=== PATIENT | female | born 1980 | race Caucasian/White ===

== ENCOUNTER 2018-05-24 12:56 | Emergency (ER) | payer BC ==
[~2018-05-24] VITALS: Ht 162.6 cm; Wt 114.8 kg
[~2018-05-24 12:56] MED LIST: LEVOTHYROXINE0.1 M2 PO
[2018-05-24 13:02] VITALS: Ht 162.6 cm; Wt 114.8 kg
[2018-05-24 15:04] LABS: BASOPHIL % 0.7 % (0-2); PLATELET COUNT 252 x10^3mcL (130-400)
[2018-05-24 15:05] LABS: RED CELL DISTRIBUTION WIDTH 14.8 % (11.5-14.5)
[2018-05-24 15:18] LABS: CALCIUM 8.8 mg/dL (8.5-10.1); CARBON DIOXIDE 26.5 mmol/L (21-32); CHLORIDE SERUM 104 mmol/L (98-107); CREATININE SERUM 0.6 mg/dL (0.6-1.0); GFR1 > 60 mL/min; GLUCOSE SERUM 88 mg/dL (74-106); POTASSIUM SERUM 3.9 mmol/L (3.5-5.1); SODIUM SERUM 138 mmol/L (136-145)
[2018-05-24 15:23] LABS: ALBUMIN 3.6 g/dL (3.4-5.0); ALKALINE PHOSPHATASE 76 U/L (46-116); ALT/SGPT 39 U/L (14-59); AST/SGOT 28 U/L (15-37); BILIRUBIN TOTAL 0.66 mg/dL (0.20-1.00); LIPASE 120 IU/L (73-393); TOTAL PROTEIN, SERUM 8.2 g/dL (6.4-8.2)
[2018-05-24 16:07] LABS: microscopic required? YES; urine erythrocyte 3+ (NEGATIVE)
[2018-05-24 18:04] VITALS: BP 119/69
== END 2018-05-24 18:04 | disposition home or self-care (01) ==
LOC: ED 12:56
PROVIDERS: Emergency Medicine
DX: N39.0 Urinary tract infection, site not specified (principal); E11.9 Type 2 diabetes mellitus without complications
CPT/HCPCS: 36415; Q0092; Q0162